=== PATIENT | male | born 1970 | race Caucasian/White ===

== ENCOUNTER 2018-08-10 09:00 | Emergency (ER) | payer BC ==
[~2018-08-10] VITALS: Ht 180.3 cm; Wt 117.9 kg
--- NOTE | 2018-08-10 09:04 | NUR ---
Placed in room 8. Placed on panel monitor, blood pressure machine and pulse oximeter. To gown for exam. Side rails up. Report given to Boom WADDELL.
[2018-08-10 09:05] VITALS: BP_SYST 117
--- NOTE | 2018-08-10 09:05 | NUR ---
Patient ambulatory to ED a/o x 4 accompanied by with c/o intermittent chest pains x 4 days. Pain described as gradual onset, dull and radiating to left upper extremity. -SOB -N/V -Diaphoresis. Patient has hx of HTN and high cholesterol. Reports recent increased in stress. Took ASA 81 [employer]SEM[employer] HAND.
--- NOTE | 2018-08-10 09:09 | NUR ---
ER Dr. Cuevas at bedside examining patient.
[2018-08-10] MEDS ORDERED: NACL 0.9% 1,000 ML IV ONE (09:12)
[2018-08-10] MEDS ORDERED: ASPIRIN 81 MG TAB.CHEW PO ONE (09:15)
[2018-08-10 09:21] LABS: BASOPHILS % (AUTO) 0.3 % (0.0-2.0); EOSINOPHILS # (AUTO) 0.1 K/uL (0.0-0.4); EOSINOPHILS % (AUTO) 1.1 % (0.0-4.0); HEMATOCRIT 47.1 % (36-54); HEMOGLOBIN 15.8 g/dL (14.0-18.0); LYMPHOCYTES # (AUTO) 2.6 K/uL (1.0-5.5); LYMPHOCYTES % (AUTO) 38.6 % (20.5-51.5); MEAN CORPUSCULAR HEMOGLOBIN 30 pg (27-31); MEAN CORPUSCULAR HGB CONC 34 % (32-36); MEAN CORPUSCULAR VOLUME 89 fL (79.0-98.0); MONOCYTES # (AUTO) 0.6 K/uL (0.0-1.0); MONOCYTES % (AUTO) 8.7 % (1.7-9.3); NEUTROPHILS # (AUTO) 3.5 K/uL (1.8-7.7); NEUTROPHILS % (AUTO) 51.3 % (40.0-70.0); PLATELET COUNT (AUTO) 141 K/uL (130-430); RED BLOOD CELL COUNT(AUTO) 5.32 MIL/uL (4.2-6.2); RED CELL DISTRIBUTION WIDTH 13.4 % (9.0-15.0); WHITE BLOOD COUNT (AUTO) 6.8 K/uL (4.8-10.8)
[2018-08-10 09:34] LABS: ANION GAP 8 (5-15); CALCIUM 9.2 mg/dL (8.4-11.0); CHLORIDE 104 mmol/L (98-107); CREATININE 0.91 mg/dL (0.55-1.30); GLUCOSE 78 mg/dL (70-99); POTASSIUM 3.7 mmol/L (3.5-5.1); SODIUM SERUM 140 mmol/L (136-145); UREA NITROGEN, BLOOD 17 mg/dL (8-21)
[2018-08-10 09:45] LABS: ALANINE AMINOTRANSFERASE 69 U/L (12-78); ALBUMIN 3.8 g/dL (3.4-4.8); ASPARTATE AMINOTRANSFERASE 28 U/L (10-37); TOTAL BILIRUBIN 0.5 mg/dL (0.0-1.0)
[2018-08-10 09:51] LABS: GFR AFRICAN AMERICAN 116 mL/min (>90)
[2018-08-10 12:14] VITALS: BP_SYST 137
--- NOTE | 2018-08-10 12:14 | NUR ---
Patient given written and verbal discharge instructions and verbalizes understanding. ER MD Cuevas discussed with patient the results and treatment provided. Patient in stable condition. ID arm band removed. IV catheter removed intact and dressing applied, no active bleeding. Rx of Protonix and Motrin given. Patient educated on pain management and to follow up with PMD. Pain Scale 0. Opportunity for questions provided and answered. Medication side effect fact sheet provided.
--- NOTE | 2018-08-10 12:14 | NUR ---
Hao grijalva in ED - 08/10/18 at 1216 by [email or web address] SEE Cuevas at bedside examining patient.
== END 2018-08-10 12:14 | disposition home or self-care (01) ==
LOC: SED 09:00
DX: R07.89 Other chest pain (principal); F41.9 Anxiety disorder, unspecified; I10 Essential (primary) hypertension; E78.00 Pure hypercholesterolemia, unspecified; Z87.891 Personal history of nicotine dependence
CPT/HCPCS: 36415; 71045; 80053; 84484; 85025; 93005; 99284

== ENCOUNTER 2020-10-27 16:03 | Emergency (ER) | payer BC ==
[~2020-10-27] VITALS: Ht 180.3 cm; Wt 116.1 kg
[2020-10-27 16:18] VITALS: BP_SYST 151
[2020-10-27] MEDS ORDERED: DIPH-TET-PERTUS Vaccine 0.5 ML VIAL (ADACEL) I.M. ONE (16:45)
[2020-10-27] MEDS ORDERED: LIDOCAINE 1% 10 MG/ML, 20 ML MDV INJ ONE (16:45)
[2020-10-27] MEDS ORDERED: cefTRIAXone 1 GM in LIDOCAINE 1%, 20 ML MDV 2.1 ML IM ONE (17:30)
[2020-10-27] MEDS ORDERED: CEPH250C PO (17:49)
[2020-10-27] MEDS ORDERED: HYDR-3917 PO (17:49)
[2020-10-27 18:08] VITALS: BP_SYST 151
== END 2020-10-27 18:08 | disposition home or self-care (01) ==
LOC: SED 16:03
DX: S68.123A Partial traumatic metacarpophalangeal amputation of left middle finger, initial encounter (principal); W45.8XXA Other foreign body or object entering through skin, initial encounter; Y93.89 Activity, other specified; Y92.89 Other specified places as the place of occurrence of the external cause; Y99.8 Other external cause status
CPT/HCPCS: 12002; 73140; 90471; 90715; 96372; 99284; J0696; J2001